=== PATIENT | male | born 1980 | race Caucasian/White ===

== ENCOUNTER 2021-09-04 09:39 | Outpatient (CLI) | payer OTHER, SELFPAY ==
[2021-09-04 10:36] LABS: Anion Gap 6 mmol/L (8-16); Blood Urea Nitrogen 10 mg/dL (9-20); Calcium 8.9 mg/dL (8.4-10.2); Carbon Dioxide 31 mmol/L (22-30); Chloride 104 mmol/L (98-107); Cholesterol 170 mg/dL (0-200); Estimated Glomerular Filt Rate > 60; Glucose 94 mg/dL (65-110); HDL Direct 39 mg/dL; Potassium 4.2 mmol/L (3.4-5.0); Sodium 141 mmol/L (137-145); Triglycerides 239 mg/dL (<150)
[2021-09-04 10:47] LABS: LDL Cholesterol Direct 86 mg/dL
== END 2021-09-04 09:40 | disposition home or self-care (01) ==
LOC: ANHLAB 09:46
PROVIDERS: PCP Nurse Practitioner Family; Visit Provider Nurse Practitioner Family
DX: Z13.1 Encounter for screening for diabetes mellitus (principal); Z13.220 Encounter for screening for lipoid disorders; Z13.29 Encounter for screening for other suspected endocrine disorder
CPT/HCPCS: 36415; 80048; 80061; 84443

== ENCOUNTER 2023-06-28 09:32 | Outpatient (CLI) | payer OTHER, SELFPAY ==
[2023-06-28 09:55] LABS: Basophils Percent Auto 0.5 % (0.2-1.2); Eosinophils Absolute Auto 0.1 K/mm3 (0-0.3); Eosinophils Percent Auto 1.8 % (0-4.4); Hematocrit 43.1 % (42.0-52.0); Hemoglobin 15.3 g/dL (14.0-18.0); Lymphocytes Absolute Auto 1.15 K/mm3 (0.9-3.2); Lymphocytes Percent Auto 29.9 % (18.3-44.2); Mean Corpuscular HGB Conc 35.5 g/dl (32-36); Mean Corpuscular Hemoglobin 30.9 pg (26-34); Mean Corpuscular Volume 87.1 fl (80-100); Mean Platelet Volume 9.9 fl (7.4-10.4); Monocytes Absolute Auto 0.4 K/mm3 (0.1-0.6); Monocytes Percent Auto 9.1 % (2.6-8.5); Neutrophils Absolute Auto 2.3 K/mm3 (1.3-6.7); Neutrophils Percent Auto 58.7 % (45.5-73.1); Platelet Count Result 158 k/mm3 (150-375); Red Blood Count 4.95 M/mm3 (4.6-6.20); Red Cell Distribution Width 12.1 % (11.5-14.5); White Blood Count 3.9 K/mm3 (4.5-10.0)
[2023-06-28 10:10] LABS: Alanine Aminotransferase 17 U/L (6-50); Albumin Level 4.6 g/dL (3.5-5.1); Alkaline Phosphatase 46 U/L (38-126); Anion Gap 6 mmol/L (8-16); Aspartate Amino Transferase 26 U/L (17-59); Bilirubin,Total 1.5 mg/dL (0.2-1.3); Blood Urea Nitrogen 13 mg/dL (9-20); Calcium 9.8 mg/dL (8.4-10.2); Carbon Dioxide 33 mmol/L (22-30); Chloride 102 mmol/L (98-107); Cholesterol 162 mg/dL (0-200); Estimated Glomerular Filt Rate > 60; Glucose 103 mg/dL (65-110); HDL Direct 44 mg/dL; Potassium 4.2 mmol/L (3.4-5.0); Sodium 141 mmol/L (137-145); Triglycerides 124 mg/dL (<150)
[2023-06-28 10:22] LABS: LDL Cholesterol Direct 97 mg/dL
[2023-06-28 10:38] LABS: Prostate Specific Antigen 0.9 ng/mL (< OR = 4.0)
== END 2023-06-28 09:33 | disposition home or self-care (01) ==
LOC: ANHLAB 09:34
PROVIDERS: PCP Family Medicine; Visit Provider Family Medicine
DX: Z12.5 Encounter for screening for malignant neoplasm of prostate (principal); K63.5 Polyp of colon; Z13.220 Encounter for screening for lipoid disorders
CPT/HCPCS: 36415; 80053; 80061; 84153; 85025; G0103

== ENCOUNTER 2023-09-20 09:01 | Outpatient (CLI) | payer OTHER, SELFPAY ==
--- NOTE | ~2023-09-20 | XR_ITS ---
EXAMINATION: XR shoulder RT min 2V DATE: 09/20/2023 09:19 INDICATION: Right shoulder pain with certain movements TECHNIQUE: AP internally and externally rotated, AP oblique externally rotated and transscapular Y vi ews of the right shoulder were obtained. COMPARISON: None FINDINGS: Normal alignment. No fracture. Glenohumeral joint is normal. Acromioclavicular joint is normal. Smal l erosion at the greater tuberosity along the articular side of the superior facet footplate of the s upraspinatus tendon. Soft tissues are unremarkable. IMPRESSION: Small erosion along the greater tuberosity which could be related to chronic rotator cuff disease or underlying crystalline or inflammatory arthritis. Reviewed, dictated and finalized at location B. IMPRESSION: Small erosion along the greater tuberosity which could be related to chronic ro tator cuff disease or underlying crystalline or inflammatory arthritis.
== END 2023-09-20 09:02 | disposition home or self-care (01) ==
LOC: ANHIMG 09:04
PROVIDERS: PCP Family Medicine; Visit Provider Orthopaedic Surgery
DX: M25.511 Pain in right shoulder (principal); G89.29 Other chronic pain
CPT/HCPCS: 73030

== ENCOUNTER 2023-09-23 06:55 | Day surgery (SDC) | payer OTHER, SELFPAY ==
[2023-06-28 10:07] VITALS: BMI 28.5
[2023-09-23 07:45] VITALS: BP 121/87; PULSE 51; RESP 14; TEMP 36.4; O2SAT 100
[2023-09-23] MEDS: LACTATED RINGERS 1,000 ML 150 ML IV CONT (08:02)
--- NOTE | 2023-09-23 08:46 | PM.HPGS ---
History of Present Illness History of Present Illness Consent: Risks, benefits, and alternatives have been discussed and questions answered. Patient agrees to proceed with procedure. Chief complaint: History of colon polyps Narrative: Abdi Woods is a 42 year old male presents for screening colonoscopy. Patient reports having had previous colonoscopy 10 years ago. No old records are available. He was told that he had colon polyps. Patient reports that his current weight appetite and bowel movements are normal. He denies abdominal pain. He has had no bleeding. Patient presents today for screening exam. Review of Systems Review of Systems: All systems reviewed & are unremarkable except as noted in HPI and below PMFSH Past Medical History Medical History Colon polyps Overweight with body mass index (BMI) of 28 to 28.9 in adult Right shoulder pain Skin lesion of back Family History Family History Father Asthma Heart disease Mother COPD (chronic obstructive pulmonary disease) Sibling No problems noted. 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 Gender identity (if verbalized by the patient): Male Sexual Orientation (if Verbalized by the Patient): Straight or Heterosexual Spiritual care concerns: No Agree to blood products: Yes Meds Home Medications and Allergies Home Medications Medication Instructions Recorded Confirmed Type No Home Medications 09/21/23 09/23/23 History Allergies Allergy/AdvReac Type Severity Reaction Status Date / Time No Known Allergies Allergy Verified 09/23/23 07:43 Vital Signs Vital Signs - 24 hr 09/23/23 07:45 Temperature 97.5 F L Pulse Rate 51 L Respiratory Rate 14 Blood Pressure 121/87 Pulse Oximetry 100 Oxygen Delivery Room Air Exam Narrative: Physical exam reveals patient to be alert. Vital signs stable. HEENT exam is unremarkable. Patient is anicteric. Lungs are clear to auscultation and percussion. Heart is without murmur or extra sounds. Abdomen bowel sounds are present soft nontender with no organomegaly. Digital external rectal exam is normal. Assessment and Plan Assessment and plan (1) Colon polyps: Qualifiers: Colon polyp type: unspecified Colon location: unspecified part of colon Qualified Code(s): K63.5 - Polyp of colon Code(s): K63.5 - Polyp of colon Status: Acute Assessment and Plan: Patient has a history of colon polyps removed at previous colonoscopy in [place] at age 32. These records not available for review. Plan follow-up colonoscopies at 5-10 year intervals. Further recommendations may be given after endoscopy.
--- NOTE | 2023-09-23 08:49 | WPDANESEPPF ---
Anes - Initial Pre Proc Eval Procedure: Operation Date: 09/23/23 09:00 Proposed Procedures p Colonoscopy - Srinivas Gustafson MD Date/Time: 09/23/23 08:49 Surgeon: Srinivas Gustafson MD Pre Op Diagnosis: History of colon polyps Patient Data Age: 42 Gender: M Height: 1.72 m Weight: 85.5 kg Last Vital Signs Temp 36.4 C L 09/23/23 07:45 Pulse 51 L 09/23/23 07:45 Resp 14 09/23/23 07:45 BP 121/87 09/23/23 07:45 Pulse Ox 100 09/23/23 07:45 O2 Del Method Room Air 09/23/23 07:45 Allergies Allergy/AdvReac Type Severity Reaction Status Date / Time No Known Allergies Allergy Verified 09/23/23 07:43 Home Medications Medication Instructions Recorded Confirmed Type No Home Medications 09/21/23 09/23/23 History Patient hx anesthesia problems: none Family hx anesthesia problems: none Results Review: All pre-operative results and documents have been reviewed as part of the pre-operative evaluation. FOR[facility]LY [facility], [facility] Past Medical History Medical History Colon polyps Overweight with body mass index (BMI) of 28 to 28.9 in adult Right shoulder pain Skin lesion of back Family History Family History Father Asthma Heart disease Mother COPD (chronic obstructive pulmonary disease) Sibling No problems noted. 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 Gender identity (if verbalized by the patient): Male Sexual Orientation (if Verbalized by the Patient): Straight or Heterosexual Spiritual care concerns: No Agree to blood products: Yes Anes - Eval Final PreProcedure Day of Procedure 09/23/23 08:49 Patient weight: overweight Heart: regular rate and rhythm Lungs: clear to auscultation Airway: Mallampati scale class II Neurological: alert and oriented Last oral intake: >/= 8 hours ASA classification: II Emergent: no Anesthetic plan: proceed Anesthesia type and monitoring: general GIVS and standard monitoring Results Review: All pre-operative results and documents have been reviewed as part of the pre-operative evaluation. Informed Consent: The patient's anesthetic plan and its attendant risks and benefits were discussed with the patient/family/POA. Questions were solicited and answers provided to the satisfaction of the patient/family/POA.
[2023-09-23 09:10] VITALS: BP 114/67; PULSE 48; RESP 18; O2SAT 100
[2023-09-23 09:20] VITALS: BP 112/55; PULSE 53; RESP 14; O2SAT 100
[2023-09-23 09:30] VITALS: BP 125/75; PULSE 54; RESP 14; O2SAT 100
--- NOTE | 2023-09-23 09:49 | WPDANESPN ---
Anes - Prog Note Post-Op Date/Time: 09/23/23 09:49 Cardiovascular status: normal Respiratory status: normal Airway patency: baseline Mental status: baseline Post-Op hydration status: normal Vital Signs: Last Vital Signs Temp 36.4 C L 09/23/23 07:45 Pulse 54 L 09/23/23 09:30 Resp 14 09/23/23 09:30 BP 125/75 09/23/23 09:30 Pulse Ox 100 09/23/23 09:30 O2 Del Method Room Air 09/23/23 09:30 Pain Score (VAS): 0 I/O: Intake & Output 09/22/23 09/23/23 09/23/23 23:59 07:59 15:59 Intake Total 600 Balance 600 Patient Feedback: Patient satisfied with anesthetic care.
== END 2023-09-23 09:46 | disposition home or self-care (01) ==
PROVIDERS: PCP Family Medicine; Visit Provider Internal Medicine Gastroenterology
PROC: 0DJD8ZZ Inspection of Lower Intestinal Tract, Via Natural or Artificial Opening Endoscopic (ICD-10-PCS; CPT 45378; principal; 2023-09-23 09:00)
DX: Z12.11 Encounter for screening for malignant neoplasm of colon (principal); K64.8 Other hemorrhoids; Z86.010 Personal history of colon polyps
CPT/HCPCS: 45378

== ENCOUNTER 2023-11-08 06:37 | Outpatient (CLI) | payer OTHER, SELFPAY ==
--- NOTE | ~2023-11-08 | MR_ITS ---
EXAMINATION: MR shoulder RT wo con DATE: 11/08/2023 07:29 INDICATION: Impingement syndrome of right shoulder. Right shoulder pain. TECHNIQUE: Magnetic resonance imaging (MRI) of the right shoulder was performed without intravenous c ontrast. Sequences included axial PD-weighted FS FSE, coronal oblique PD-weighted FS FSE and T2-weigh pascale FS FSE, and sagittal oblique T2-weighted FS FSE and T1-weighted FSE. COMPARISON: Right shoulder radiographs 09/20/2023 FINDINGS: Coracoacromial arch: The acromion undersurface is curved in morphology (type II). There is moderate acromioclavicular join t osteoarthritis. There is mild subacromial/subdeltoid bursitis. Rotator cuff: There is a near full-thickness tear of supraspinatus and infraspinatus tendons at their distal attach ments measuring 20 mm anterior to posterior by 2 mm proximal to distal. Teres minor tendon is normal. Subscapularis tendon is normal. The rotator cuff muscle bellies are normal. Biceps tendon and glenoid labrum: Biceps tendon is in bicipital groove. Intra-articular biceps tendon is normal. The glenoid labrum is intact. Fluid: There is no glenohumeral joint effusion. Bones/cartilage: The glenoid cartilage is normal. The humeral head cartilage is normal. IMPRESSION: 1. Near full-thickness rotator cuff tear. 2. Moderate subacromial/subdeltoid bursitis. 3. Mild acromioclavicular joint osteoarthritis. Reviewed, dictated and finalized at location A.
== END 2023-11-08 06:38 | disposition home or self-care (01) ==
PROVIDERS: PCP Family Medicine; Visit Provider Orthopaedic Surgery
DX: M75.41 Impingement syndrome of right shoulder (principal); M75.51 Bursitis of right shoulder; M19.011 Primary osteoarthritis, right shoulder; M75.111 Incomplete rotator cuff tear or rupture of right shoulder, not specified as traumatic; G89.29 Other chronic pain
CPT/HCPCS: 73221